=== PATIENT | female | born 1980 | race Asian ===

== ENCOUNTER 2017-12-01 18:15 | Inpatient (IN) | payer SELFPAY ==
[~2017-12-01] VITALS: Ht 160 cm; Wt 63.5 kg
[2017-12-01] MEDS ORDERED: FERR-252 PO (18:36)
[2017-12-01] MEDS ORDERED: PREN-546 PO (18:36)
[2017-12-01] MEDS ORDERED: OXYTOCIN 20 UNITS in LACTATED RINGERS 1,000 ML IV SCH ×2 (18:46→21:25)
[2017-12-01] MEDS ORDERED: LACTATED RINGERS 1,000 ML IV SCH (18:46)
[2017-12-01] MEDS ORDERED: IBUPROFEN 800 MG TAB PO PRN ×2 (18:50→22:30)
[2017-12-01] MEDS ORDERED: CARBOPROST 250 MCG/ML AMP IM PRN (18:50)
[2017-12-01] MEDS ORDERED: NALBUPHINE 10 MG/ML AMP IVP PRN (18:50)
[2017-12-01] MEDS ORDERED: PROMETHAZINE 25 MG/ML VIAL IVP PRN (18:50)
[2017-12-01] MEDS ORDERED: METHYLERGONOVINE 0.2 MG/ML AMP IM PRN ×2 (18:50→22:30)
[2017-12-01 19:54] LABS: BASOPHILS # (AUTO) 0.1 K/uL (0.00-0.22); BASOPHILS % (AUTO) 1.5 % (0.0-2.0); EOSINOPHILS # (AUTO) 0.1 K/uL (0-0.4); EOSINOPHILS % (AUTO) 0.6 % (0.0-4.0); HEMATOCRIT 36.4 % (36-48); HEMOGLOBIN 11.9 g/dL (12.0-16.0); LYMPHOCYTES # (AUTO) 1.4 K/uL (2.5-16.5); LYMPHOCYTES % (AUTO) 15.4 % (20.5-51.1); MEAN CORPUSCULAR HEMOGLOBIN 29 pg (27-31); MEAN CORPUSCULAR HGB CONC 33 g/dL (33-37); MEAN CORPUSCULAR VOLUME 90 fL (80-94); MONOCYTES # (AUTO) 0.7 K/uL (0.8-1.0); MONOCYTES % (AUTO) 7.8 % (1.7-9.3); NEUTROPHILS # (AUTO) 6.5 K/uL (1.8-7.7); NEUTROPHILS % (AUTO) 74.7 % (42.2-75.2); PLATELET COUNT (AUTO) 129 K/uL (140-450); RED BLOOD CELL COUNT(AUTO) 4.04 MIL/uL (4.20-5.40); RED CELL DISTRIBUTION WIDTH 13.1 % (11.6-13.7); WHITE BLOOD COUNT (AUTO) 8.8 K/uL (4.8-10.8)
[2017-12-01] MEDS ORDERED: NALBUPHINE HYDROCHLORIDE 10 MG/ML VIAL ONE (20:00)
[2017-12-01] MEDS ORDERED: PROMETHAZINE 25 MG/ML VIAL ONE (20:00)
[2017-12-01 20:04] LABS: APPEARANCE,URINE CLEAR (CLEAR); BILIRUBIN,URINE NEGATIVE (NEGATIVE); BLOOD, URINE NEGATIVE (NEGATIVE); COLOR,URINE YELLOW (YELLOW); LEUKOCYTE ESTERASE ,URINE NEGATIVE (NEGATIVE); NITRITE, URINE NEGATIVE (NEGATIVE); UGLUCOSE NEGATIVE (NEGATIVE)
[2017-12-01 20:06] LABS: ALBUMIN 2.7 g/dL (3.4-5.0); CARBON DIOXIDE 24.3 mmol/L (21-32); CREATININE 0.7 mg/dL (0.6-1.3); POTASSIUM 3.3 mmol/L (3.5-5.1); TOTAL BILIRUBIN 0.3 mg/dL (0.0-1.0)
[2017-12-01] MEDS ORDERED: OXYTOCIN 10 UNITS/ML VIAL ONE ×2 (20:09→22:13)
[2017-12-01] MEDS ORDERED: OXYTOCIN 20 UNITS/LR PREMIX 1,000 ML IV ONE (20:10)
[2017-12-01] MEDS ORDERED: BUPIVACAINE 0.125%/NS PREMIX 250 ML ONE (20:38)
[2017-12-01] MEDS ORDERED: AMPICILLIN 2,000 MG in NACL 0.9% 100 ML IV SCH (21:30)
[2017-12-01] MEDS ORDERED: AMPICILLIN 2,000 MG VIAL ONE (21:43)
[2017-12-01] MEDS ORDERED: NALOXONE 0.4 MG/ML VIAL ONE (22:14)
[2017-12-01] MEDS ORDERED: TEMAZEPAM 15 MG CAP PO PRN (22:30)
[2017-12-01] MEDS ORDERED: HYDROcodone/APAP 5/325 MG 1 TAB TAB PO PRN (22:30)
[2017-12-01] MEDS ORDERED: BENZOCAINE/MENTHOL 20%-0.5% 60 GM CAN TP PRN (22:30)
[2017-12-01] MEDS ORDERED: OXYTOCIN 10 UNITS/ML VIAL IM PRN (22:30)
[2017-12-01] MEDS ORDERED: oxyCODONE/APAP 5/325 MG 1 TAB TAB PO PRN (22:30)
[2017-12-01] MEDS ORDERED: MEASLES, MUMPS, AND RUBELLA 1 VIAL SQVAC PRN (22:30)
[2017-12-02] MEDS ORDERED: AMPICILLIN 1,000 MG VIAL IVP SCH
[2017-12-02] MEDS ORDERED: OXYTOCIN 10 UNITS/ML VIAL IM SCH (03:00)
[2017-12-02 07:04] LABS: HEMATOCRIT 32.5 % (36-48); HEMOGLOBIN 11.1 g/dL (12.0-16.0)
[2017-12-02] MEDS ORDERED: INFLUENZA VIRUS VACCINE QUAD 0.5 ML SYR IMVAC SCH (10:35)
[2017-12-02] MEDS ORDERED: DOCUSATE SOD/SENNA 50/8.6 MG 1 TAB PO SCH (21:00)
--- NOTE | 2017-12-03 09:52 | NUR ---
PATIENT HAS BEEN SCREENED AND CATEGORIZED LOW NUTRITION RISK. PATIENT WILL BE SEEN WITHIN 7 DAYS OF ADMISSION. 12/08/[address]
[2017-12-06 10:57] LABS: RAPID PLASMA REAGIN NON-REACTIVE (Non Reactiv)
== END 2017-12-03 21:00 | disposition home or self-care (01) | DRG 775 ==
LOC: MLD 18:15 → MFCC 12-02 01:05
PROVIDERS: ADMIT Obstetrics & Gynecology; ATTEND Obstetrics & Gynecology
PROC: 10E0XZZ Delivery of Products of Conception, External Approach (ICD-10-PCS; principal; 2017-12-01)
PROC: 0W8NXZZ Division of Female Perineum, External Approach (ICD-10-PCS; 2017-12-01)
PROC: 00HU33Z Insertion of Infusion Device into Spinal Canal, Percutaneous Approach (ICD-10-PCS; 2017-12-01)
PROC: 3E0R3BZ Introduction of Anesthetic Agent into Spinal Canal, Percutaneous Approach (ICD-10-PCS; 2017-12-01)
PROC: 3E0234Z Introduction of Serum, Toxoid and Vaccine into Muscle, Percutaneous Approach (ICD-10-PCS; 2017-12-02)
PROC: 3E0234Z Introduction of Serum, Toxoid and Vaccine into Muscle, Percutaneous Approach (ICD-10-PCS; 2017-12-02)
DX: O69.81X0 Labor and delivery complicated by cord around neck, without compression, not applicable or unspecified (principal); Z23 Encounter for immunization; Z37.0 Single live birth; Z3A.38 38 weeks gestation of pregnancy
CPT/HCPCS: 36415; 51702; 80053; 81003; 85018; 85025; 86592; 86886; 86900; 86901; 90658; 90715; J0290; J2300; J2310; J2550; J2590; J3490; J7120